=== PATIENT | male | born 1990 | race Caucasian/White ===

== ENCOUNTER 2016-05-23 01:58 | Emergency (ER) | payer SELFPAY ==
[~2016-05-23] VITALS: Ht 172.7 cm; Wt 81.8 kg
[~2016-05-23 01:58] MED LIST: OLAN5TAB2 PO; PARO20TA24 PO
[2016-05-23] MEDS ORDERED: SERT100T12 PO (02:08)
[2016-05-23] MEDS ORDERED: LORazepam 2 MG TABLET PO ONE (03:30)
[2016-05-23 03:56] VITALS: BP 122/65
== END 2016-05-23 03:58 | disposition home or self-care (01) ==
LOC: EMS 01:59
DX: F41.9 Anxiety disorder, unspecified (principal); F25.9 Schizoaffective disorder, unspecified; F31.9 Bipolar disorder, unspecified; F12.90 Cannabis use, unspecified, uncomplicated; F17.210 Nicotine dependence, cigarettes, uncomplicated; Z59.0 Homelessness; Z88.0 Allergy status to penicillin
CPT/HCPCS: 99284; 99406

== ENCOUNTER 2016-11-06 05:44 | Emergency (ER) | payer MEDICAID ==
[~2016-11-06] VITALS: Ht 180.3 cm; Wt 87.3 kg
[~2016-11-06 05:44] MED LIST changes: -OLAN5TAB2 PO; -PARO20TA24 PO; +SERT100T12 PO
[2016-11-06 06:49] VITALS: BP 126/79
[2016-11-06 06:57] LABS: BASOPHILS % (AUTO) 0.4 % (0.0-2.0); HEMATOCRIT 40.2 % (41-53); HEMOGLOBIN 13.7 g/dL (13.5-17.5); LYMPHOCYTES # (AUTO) 1.5 K/uL (1.0-4.8); LYMPHOCYTES % (AUTO) 15.9 % (22.0-44.0); MEAN CORPUSCULAR HEMOGLOBIN 29.8 pg (26.0-34.0); MEAN CORPUSCULAR HGB CONC 34.1 G/dL (31.0-37.0); MEAN CORPUSCULAR VOLUME 88 fL (80-100); MONOCYTES # (AUTO) 0.8 K/uL (0.1-1.0); MONOCYTES % (AUTO) 8.1 % (2.0-9.0); NEUTROPHILS # (AUTO) 7.2 K/uL (1.8-7.7); NEUTROPHILS % (AUTO) 74.6 % (40.0-70.0); PLATELET COUNT (AUTO) 209 K/uL (150-450); RED BLOOD CELL COUNT(AUTO) 4.59 MIL/uL (4.50-5.90); WHITE BLOOD COUNT (AUTO) 9.6 K/uL (4.5-11.0)
[2016-11-06 07:04] LABS: ANION GAP 9 mmol/L (8-16); CALCIUM, TOTAL 8.9 mg/dL (8.8-10.5); CARBON DIOXIDE 31 mmol/L (22-29); CHLORIDE 102 mmol/L (98-107); CREATININE 0.92 mg/dL (0.60-1.30); GLOMERULAR FILTR. RATE CALC > 60 mL/min (>60); POTASSIUM 3.3 mmol/L (3.5-5.1); SODIUM SERUM 142 mmol/L (136-145); UREA NITROGEN, BLOOD 12 mg/dL (7-18)
[2016-11-06 07:12] LABS: ALANINE AMINOTRANSFERASE 24 U/L (12-78); ALBUMIN 3.9 g/dL (3.4-5.0); ASPARTATE AMINOTRANSFERASE 24 U/L (15-37); BILIRUBIN,TOTAL 0.5 mg/dL (0.1-1.0); TOTAL PROTEIN, SERUM 7.2 g/dL (6.4-8.2)
== END 2016-11-06 07:21 | disposition left against medical advice (07) ==
LOC: EMS 05:45
DX: F20.9 Schizophrenia, unspecified (principal); F31.9 Bipolar disorder, unspecified; F12.90 Cannabis use, unspecified, uncomplicated; F17.210 Nicotine dependence, cigarettes, uncomplicated; Z88.0 Allergy status to penicillin; Z91.14 Patient's other noncompliance with medication regimen
CPT/HCPCS: 36415; 80053; 80307; 85025; 99284; G0480